=== PATIENT | male | born 1945 | race African-American/Black ===

== ENCOUNTER 2016-09-06 14:49 | Emergency (ER) | payer BC, MEDICARE ==
[~2016-09-06 14:49] MED LIST: ACCUPRIL40 MG PO; ACIPHEX PO; ADVAIR250 INH; ALPHAGAN OPH; APRES25 PO; ASA5GR PO; ASAB PO; ATEN25 PO; BYSTOLIC10 MG PO; CARDURA8 MG PO; CAT3 PO; CIALIS10 MG PO; CLARIT10 PO; COMBIVENT RESPIM4 GM INH; DEMA100 PO; EDARBI40 MG PO; EDARBI80 MG PO; FLONASE NAS; INSPRA25 PO; INSPRA50 MG PO; KLOR-CON M2020 MEQ PO; L40 PO; LACT30UDL PO; LEVEMFLXPN SC; LYRICA75 PO; METHYLPREDNISOLONE 4 MG; NEUR300 PO; NITROSTAT0.3 MG SL; NORV10 PO; NORV25 PO; PCET PO; PHENTERMINE15 M1 PO; PROAIR HFA INH; PROSCAR5 PO; SPIRO25 PO; TIMOPTIC0.5 % OP; VALTURN1 PO; VOLT75 PO; Z100 PO
[2016-09-06 15:52] LABS: BASOPHILS 0.4 %; BASOPHILS ABSOLUTE 0.03 10/3/uL (0.0-0.16); EOSINOPHILS 3.5 %; EOSINOPHILS ABSOLUTE 0.25 10/3/uL (0.0-0.53); HEMATOCRIT 39.7 % (40.0-51.0); HEMOGLOBIN 11.8 g/dL (13.6-17.8); IMMATURE GRANULOCYTES 0.1 %; IMMATURE GRANULOCYTES ABSOLUTE 0.01 10/3/uL (0.0-0.11); LYMPHOCYTES 22.2 %; LYMPHOCYTES ABSOLUTE 1.59 10/3/uL (0.67-4.30); MANUAL DIFF NO %; MEAN CORPUS HGB CONC 29.7 g/dL (32.0-36.0); MEAN CORPUSCULAR HEMOGLOB 25.9 pg (26.0-34.0); MEAN CORPUSCULAR VOLUME 87.3 fL (80-100); MEAN PLATELET VOLUME 10.6 fL (9.2-13.0); MONOCYTES ABSOLUTE 0.57 10/3/uL (0.21-1.20); NEUTROPHILS 65.8 %; NEUTROPHILS ABSOLUTE 4.71 10/3/uL (2.02-8.40); PLATELET COUNT 134 10/3/uL (150-400); RBC DISTRIBUTION WIDTH 15.1 % (12.0-16.0); RED CELL COUNT 4.55 10/6/uL (4.7-6.1); WHITE BLOOD CELLS 7.2 10/3/uL (4.5-10.5)
[2016-09-06 15:59] LABS: INTERNATIONAL NORMAL RATI 1.2 UNITS (-); PROTIME (NOT ORD) 15.3 SEC (12.0-14.5)
[2016-09-06 16:00] LABS: PARTIAL THROMBO TIME 41.7 SEC (22.5-37.2)
[2016-09-06 16:08] LABS: BUN (BLOOD UREA NITROGEN) 18 MG/DL (6-23); CALCIUM, SERUM 8.2 MG/DL (8.5-10.4); CHEST PAIN PROFILE TAT 0 Hrs 20 Mins; CHLORIDE, SERUM 98 MMOL/L (96-112); CO2 (CARBON DIOXIDE) 42 MMOL/L (24-34); CREATININE 1.92 MG/DL (0.70-1.30); GFR AFRICAN AMERICAN 40 ML/MIN (>=60); GFR NON AFRICAN AMERICAN 35 ML/MIN (>=60); GLUCOSE, SERUM 97 MG/DL (60-99); POTASSIUM, SERUM 3.1 MMOL/L (3.5-5.3); SODIUM, SERUM 146 MMOL/L (135-148); TROPONIN I <0.02 NG/ML (<0.05)
[2016-12-16] MEDS ORDERED: ADVAIR250 INH (02:54)
[2016-12-16] MEDS ORDERED: APRES50 PO (02:54)
[2016-12-16] MEDS ORDERED: CARDURA8 MG PO (02:54)
[2016-12-16] MEDS ORDERED: ENDOCET1 TA3 PO (02:56)
[2016-12-16] MEDS ORDERED: Z100 PO (02:57)
[2016-12-16] MEDS ORDERED: PROSCAR5 PO (02:57)
[2016-12-16] MEDS ORDERED: BYSTOLIC10 MG PO (02:57)
[2016-12-16] MEDS ORDERED: INSPRA50 MG PO (03:00)
[2016-12-16] MEDS ORDERED: DEMA100 PO (03:00)
[2016-12-16] MEDS ORDERED: SINGULAIR1 PO (03:00)
[2016-12-16] MEDS ORDERED: EDARBI40 MG PO (03:01)
[2016-12-16] MEDS ORDERED: ASAB PO (03:01)
[2016-12-16] MEDS ORDERED: COMBIVENT RESPIM4 GM INH (03:01)
[2016-12-16] MEDS ORDERED: FLONASE NAS (03:02)
[2016-12-16] MEDS ORDERED: CLARIT10 PO (03:02)
[2016-12-17] MEDS ORDERED: NITROQUICK0.4 MG SL (13:15)
[2016-12-17] MEDS ORDERED: IMDUR30 PO (13:16)
[2016-12-17] MEDS ORDERED: NORV10 PO (13:16)
== END 2016-09-06 16:45 | disposition home or self-care (01) ==
LOC: ER 14:49
PROVIDERS: Emergency Medicine
DX: J45.901 Unspecified asthma with (acute) exacerbation (principal); I12.9 Hypertensive chronic kidney disease with stage 1 through stage 4 chronic kidney disease, or unspecified chronic kidney disease; N18.9 Chronic kidney disease, unspecified; E87.6 Hypokalemia; Z79.82 Long term (current) use of aspirin; Z79.4 Long term (current) use of insulin; Z79.899 Other long term (current) drug therapy
CPT/HCPCS: 71010; 80048; 83735; 83880; 84484; 85025; 85610; 85730; 93005; 94640; 96374; 99285; A9270-GY; J2930